=== PATIENT | female | born 1985 | race Caucasian/White ===

== ENCOUNTER 2016-09-01 21:41 | Emergency (ER) | payer OTHER ==
[~2016-09-01] VITALS: Ht 160 cm; Wt 70.0 kg
[~2016-09-01 21:41] MED LIST: ALBU17IN INH; IBUP80TA PO; MULTCAP PO; PERC5TAB6 PO; PROZ20CA11 PO; TRAM50TA2 PO; VARE1TA PO
[2016-09-01] MEDS ORDERED: MICR1TAB10 PO (21:53)
[2016-09-01] MEDS ORDERED: PERCOCET 5MG/325MG TAB PO ONE (22:45)
[2016-09-02] MEDS ORDERED: OXYCODONE/APAP 5MG/325MG(BULK FOR ED) 1 TABLET PO ONE
[2016-09-02 00:10] VITALS: BP 125/67
--- NOTE | 2016-09-02 00:42 | REP ---
Clinical: Trauma. Technique: AP, lateral, bilateral oblique views left wrist . Findings: The carpal bones, surrounding osseous structures, soft tissues, and joint spaces are normal. There is no evidence for acute fracture or dislocation. No subcutaneous emphysema or radiodense foreign body. Impression: Normal wrist series. No acute fracture or dislocation Signed by Zion Daly MD 09/02/2016 12:33 A
--- NOTE | 2016-09-02 01:11 | REP ---
Clinical: Trauma. Technique: AP, lateral, bilateral oblique views left hand . Findings: The osseous structures and joint spaces are intact and normal. There is no evidence for acute fracture or dislocation. Possible old injuries at the base of the third - fifth metacarpal bones. Surrounding soft tissues are unremarkable. No subcutaneous emphysema or radiodense foreign body. Impression: 1. No acute fracture or dislocation. 2. Subtle irregularity at the base of the third - fifth metacarpal bones may reflect old injuries and should be correlated clinically. Signed by Zion Daly MD 09/02/2016 01:03 A
== END 2016-09-02 00:12 | disposition home or self-care (01) ==
LOC: M ED 22:44
DX: S66.515A Strain of intrinsic muscle, fascia and tendon of left ring finger at wrist and hand level, initial encounter (principal); S66.517A Strain of intrinsic muscle, fascia and tendon of left little finger at wrist and hand level, initial encounter; X50.0XXA Overexertion from strenuous movement or load, initial encounter; Y92.099 Unspecified place in other non-institutional residence as the place of occurrence of the external cause; Y93.89 Activity, other specified; Y99.9 Unspecified external cause status; F41.9 Anxiety disorder, unspecified; J45.909 Unspecified asthma, uncomplicated; Z79.899 Other long term (current) drug therapy; Z88.8 Allergy status to other drugs, medicaments and biological substances; Z88.2 Allergy status to sulfonamides; Z91.013 Allergy to seafood

== ENCOUNTER 2016-12-29 01:27 | Observation (INO) | payer OTHER ==
[~2016-12-29] VITALS: Ht 160 cm; Wt 58.7 kg
[~2016-12-29 01:27] MED LIST changes: +MICR1TAB10 PO; +PERC5TAB12 PO; -PERC5TAB6 PO
[2016-12-29] MEDS ORDERED: NS 1,000 ML IV ONE ×2 (02:00→06:45)
[2016-12-29 02:08] LABS: BASO # 0.1 10^3/uL (0.0-0.2); BASO % 0.5 % (0.0-1.0); EOS # 0.4 10^3/uL (0.0-0.50); EOS % 3.8 % (0.0-3.0); IMMATURE GRANULOCYTE % 0.2 % (0-0); LYMPH # 3.4 10^3/uL (1.5-4.5); LYMPH % 33.3 % (24.0-44.0); MEAN CORPUSCULAR HEMOGLOBIN 31.2 pg (27.0-33.0); MEAN CORPUSCULAR HGB CONC 34.5 g/dl (32.0-36.5); MEAN CORPUSCULAR VOLUME 90.4 fl (80.0-96.0); MONO # 0.6 10^3/uL (0.0-0.8); MONO % 6.2 % (0.0-5.0); NEUTROPHILS # 5.7 10^3/uL (1.8-7.7); PLATELET COUNT, AUTOMATED 211 10^3/uL (150-450); RED CELL DISTRIBUTION WIDTH 12.5 % (11.5-14.5); WHITE BLOOD COUNT 10.2 10^3/uL (4.0-10.0)
[2016-12-29 02:30] LABS: ALBUMIN 3.2 GM/DL (3.2-5.2); ALBUMIN/GLOBULIN RATIO 1.28 (1.00-1.93); ALKALINE PHOSPHATASE 48 U/L (45-117); ALT/SGPT 14 U/L (12-78); ANION GAP 4 MEQ/L (8-16); AST/SGOT 9 U/L (15-37); BILIRUBIN,DIRECT < 0.1 MG/DL (0.0-0.2); BILIRUBIN,TOTAL 0.2 MG/DL (0.2-1.0); BLOOD UREA NITROGEN 15 MG/DL (7-18); CALCIUM LEVEL 7.6 MG/DL (8.5-10.1); CARBON DIOXIDE LEVEL 27 MEQ/L (21-32); CHLORIDE LEVEL 111 MEQ/L (98-107); GLOMERULAR FILTRATION RATE > 60.0 (>60); GLUCOSE, FASTING 62 MG/DL (70-105); POTASSIUM SERUM 3.2 MEQ/L (3.5-5.1); SODIUM LEVEL 142 MEQ/L (136-145); TOTAL PROTEIN 5.7 GM/DL (6.4-8.2)
[2016-12-29 03:59] LABS: METHADONE URINE NEGATIVE (NEGATIVE)
[2016-12-29] MEDS ORDERED: ACETAMINOPHEN TAB 650MG DOSE (2X325MG) PO PRN (08:30)
[2016-12-29] MEDS ORDERED: ONDANSETRON 4MG/2ML VIAL (J2405) IV PRN (08:30)
[2016-12-29] MEDS ORDERED: ONDANSETRON 4 MG TAB (S0181) PO PRN (08:30)
[2016-12-29] MEDS ORDERED: KCL 40MEQ in NS 1000ML 1,000 ML IV SCH (08:30)
--- NOTE | 2016-12-29 08:56 | ECGEPIP ---
Stationary ECG Study [facility] - ED Test Date: 2016-12-29 Pat Name: DARLENE FERNANDES Department: Room: - Gender: F Rn Hemo Dialysis: : 1985 Requested By: RENE Rodríguez Order Number: [id number] Reading MD: Meng Llanes Measurements Intervals [place] Rate: 63 P: 64 WI: 179 QRS: 77 QRSD: 93 T: 41 QT: 435 QTc: 446 Interpretive Statements SINUS RHYTHM POSSIBLE LEFT ATRIAL ENLARGEMENT INC. RBBB NO PRIORS Electronically Signed On 12-29-2016 8:56:06 EDT by Meng Llanes
[2016-12-29 11:05] VITALS: BP 108/66
--- NOTE | 2016-12-29 16:43 | DS.PDOC ---
Discharge Summary General Date of Admission Dec 29, 2016 at 08:29 Date of Discharge 12/29/2016 Discharge Summary HISTORY AND PHYSICAL/DISCHARGE SUMMARY Please note, the patient left AMA within several hours of her admit order being placed, and before her H&P could be dictated. This document will serve as both a history and physical, as well as the discharge summary. Date of admission: 12/29/2016 Date of discharge/left AMA: 12/29/2016 PCP: Cierra Gunn Chief complaint: Took medicine to try to go to sleep HPI: 31-year-old female with anxiety, depression, OCD, seasonal allergies, cervical cancer status post hysterectomy who presented to the emergency department after her 16-year-old son called the neighbor because he was concerned about her. The neighbor called an ambulance. Upon arrival to the ED, the patient was extremely somnolent, and even after 6 hours of observation, there was difficulty arousing her. She initially reported that she took 21 mg of Xanax in an effort to help her go to sleep, but when a tox screen came back negative, it was clarified and learned that she actually took 21 mg of Klonopin , not Xanax. She vehemently reports to me that she took these medications in an effort to fall sleep and not in an effort to harm herself. She states that things have been rough for her lately, as her house is being foreclosed upon, and she recently lost her job. She states she lost her job because she has an 11 -year-old son who is autistic, ADHD, ODD, and bipolar who is having difficulty in school and she had to take off so much work to take care of him that she lost her job. She denies any SI. When asked if she has ever done anything to harm herself before, she tells me, "not intentionally." When I ask her to elaborate on this, all she will say is that she is "clumsy." She denies any prior inpatient mental health admissions. She does report that there is a lot of depression in her family, and that her uncle killed himself. Her best friend was present at the bedside during our interview. Past medical history: anxiety, depression, OCD, seasonal allergies, cervical cancer status post hysterectomy Past surgical history: BTL, appendectomy, right nephrectomy, hysterectomy Family history: Depression, uncle who committed suicide Social history: Patient states that she recently lost her job. She smokes approximately 4 cigarettes daily and denies any drug or alcohol use. Allergies: Gabapentin, shrimp, sulfa Review of systems: General: Negative for fever and chills Eyes: Negative for vision changes and ocular discharge ENT: Negative for sore throat and nose bleed Cardiovascular: Negative for chest pain, positive for palpitations when chasing her pets Respiratory: Negative for cough and shortness of breath GI: Negative for nausea, vomiting, diarrhea, constipation Musculoskeletal: Negative for neck and back pain Skin: Negative for rash Neuro: Negative for headache, dizziness, numbness, tingling Psych: Positive for being overwhelmed with circumstances, but denies suicidal ideation Endocrine: Negative for polyuria : Negative for dysuria Heme: Negative for bleeding Home meds: See below Physical exam: Vital signs: Vital Sign - Last 24 Hours 12/29/16 12/29/16 12/29/16 12/29/16 01:42 01:52 01:57 02:00 Temp 98.0 Pulse 72 69 65 Resp 12 B/P (MAP) 95/44 (61) 106/60 (75) Pulse Ox 95 O2 Delivery Room Air 12/29/16 12/29/16 12/29/16 12/29/16 02:02 02:07 02:12 02:17 Pulse 63 69 67 68 Pulse Ox 95 95 95 96 12/29/16 12/29/16 12/29/16 12/29/16 02:22 02:27 02:32 02:35 Pulse 71 69 72 B/P (MAP) Pulse Ox 95 96 95 12/29/16 12/29/16 12/29/16 12/29/16 02:37 02:42 02:47 02:52 Pulse 74 74 72 71 Pulse Ox 95 95 96 96 12/29/16 12/29/16 12/29/16 12/29/16 02:57 03:02 03:07 03:12 Pulse 69 71 70 65 Pulse Ox 96 96 95 98 12/29/16 12/29/16 12/29/16 12/29/16 03:17 03:22 03:24 03:27 Pulse 62 61 61 B/P (MAP) 110/69 (83) Pulse Ox 100 99 12/29/16 12/29/16 12/29/16 12/29/16 03:32 03:37 03:42 03:47 Pulse 64 67 69 71 12/29/16 12/29/16 12/29/16 12/29/16 03:52 03:57 04:02 04:07 Pulse 72 71 72 71 12/29/16 12/29/16 12/29/16 12/29/16 04:12 04:17 04:22 04:27 Pulse 72 72 73 71 12/29/16 12/29/16 12/29/16 12/29/16 04:32 04:37 04:42 04:47 Pulse 71 70 72 72 12/29/16 12/29/16 12/29/16 12/29/16 04:52 04:57 05:02 05:07 Pulse 67 67 69 68 Pulse Ox 98 12/29/16 12/29/16 12/29/16 12/29/16 05:12 05:17 05:22 05:27 Pulse 66 67 67 67 Pulse Ox 97 97 97 97 12/29/16 12/29/16 12/29/16 12/29/16 05:32 05:37 05:42 05:45 Temp 97.3 Pulse 67 65 64 Resp 14 B/P (MAP) Pulse Ox 98 96 96 99 O2 Delivery Room Air 12/29/16 12/29/16 12/29/16 12/29/16 05:47 05:52 05:57 06:02 Pulse 66 66 64 69 Pulse Ox 96 96 96 96 12/29/16 12/29/16 12/29/16 12/29/16 06:07 06:12 06:17 06:21 Pulse 69 67 63 B/P (MAP) 90/51 (64) Pulse Ox 96 96 97 12/29/16 12/29/16 12/29/16 12/29/16 06:22 06:27 06:30 06:32 Pulse 57 61 65 B/P (MAP) 87/53 (64) Pulse Ox 97 98 97 12/29/16 12/29/16 12/29/16 12/29/16 06:47 06:55 07:02 07:10 Pulse 64 61 B/P (MAP) 92/50 (64) 85/51 (62) Pulse Ox 97 98 12/29/16 12/29/16 12/29/16 12/29/16 07:17 07:25 07:32 07:40 Pulse 63 65 B/P (MAP) 90/54 (66) 92/54 (67) Pulse Ox 97 96 12/29/16 12/29/16 12/29/16 12/29/16 07:47 07:55 08:02 08:15 Pulse 63 58 B/P (MAP) 90/54 (66) 94/62 (73) Pulse Ox 96 98 12/29/16 12/29/16 12/29/16 12/29/16 08:17 08:25 08:40 08:40 Pulse 64 64 64 B/P (MAP) 99/66 (77) 99/65 (76) 99/65 (76) Pulse Ox 96 97 97 12/29/16 12/29/16 12/29/16 12/29/16 08:55 08:55 09:10 09:10 Pulse 63 63 73 73 B/P (MAP) 88/47 (61) 88/47 (61) 114/58 (76) 114/58 (76) Pulse Ox 96 96 98 98 12/29/16 12/29/16 12/29/16 12/29/16 09:25 09:40 09:41 09:41 Pulse 75 68 68 B/P (MAP) 101/58 (72) 93/57 (69) Pulse Ox 99 99 99 12/29/16 12/29/16 12/29/16 12/29/16 09:56 10:11 10:25 10:26 Temp 97.4 Pulse 63 64 79 Resp 14 B/P (MAP) 96/69 (78) Pulse Ox 99 99 12/29/16 12/29/16 12/29/16 10:40 10:41 11:05 Temp 96.8 Pulse 61 66 Resp 16 B/P (MAP) 104/83 (90) 108/66 (80) Pulse Ox 98 O2 Delivery Room Air Gen.: easily arousable, no acute distress Eyes: Extraocular movements intact, normal sclera ENT: Moist mucous membranes Cardiovascular: RRR, no murmurs rubs or gallops Lungs: clear to auscultation bilaterally, no rales, rhonchi, or wheeze Abdomen: Soft, NT/ND, normal BS Musculoskeletal: normal range of motion Extremities: No peripheral edema Neuro: alert and oriented 3, normal speech, no focal deficits Psych: Denies SI, very frustrated with me that I will not let her leave Labs and radiology: See below Potassium 3.2, remainder of BMP is unremarkable CBC, hepatitis panel, TSH, aspirin level, Tylenol level, tox screen are all unremarkable Assessment and plan: 31-year-old female with anxiety, depression, OCD, seasonal allergies, cervical cancer status post hysterectomy who presented to the emergency department after taking 21 mg of Klonopin. She was initially admitted by myself to the ICU for cardiac monitoring, and was placed on suicide precautions with a psychiatric consult to Dr. Bennett. She was started on IV fluids with potassium to replace the potassium. Before she could receive a room upstairs, Dr. Mariela Flores evaluated her in the emergency department. He then called and spoke to me regarding the case. He told me that he felt she was not suicidal, and had cleared her from a psych standpoint. He told me that she did not need inpatient psych admission and he felt that she had the capacity to choose to leave AMA. At the time of my dictation, director security management of his note is still pending. Immediately after speaking to Dr. Colindres, the patient's nurse paged me , stating that the patient had ripped out her IV and still desired to leave AMA. Based upon my phone conversation with Dr. Bennett, I allowed her to sign out AMA, as she and I had already discussed my concerns that she would need to be monitored on a surveillance system monitor as we ensured that she became more alert. She was accompanied by her best friend. Vital Signs/I&Os Vital Signs Date Time Temp Pulse Resp B/P (MAP) Pulse Ox O2 Delivery O2 Flow Rate FiO2 12/29/16 11:05 96.8 66 16 108/66 (80) 98 Room Air I&O- Last 24 Hours up to 6 AM 12/30/16 06:00 Intake Total 1000 ml Balance 1000 ml Laboratory Data Labs 24H Laboratory Tests 2 12/29/16 01:47: Immature Granulocyte % (Auto) 0.2H, White Blood Count 10.2H, Red Blood Count 4.07, Hemoglobin 12.7, Hematocrit 36.8, Mean Corpuscular Volume 90.4, Mean Corpuscular Hemoglobin 31.2, Mean Corpuscular Hemoglobin Concent 34.5, Red Cell Distribution Width 12.5, Platelet Count 211, Neutrophils (%) (Auto) 56.0, Lymphocytes (%) (Auto) 33.3, Monocytes (%) (Auto) 6.2H, Eosinophils (%) (Auto) 3.8H, Basophils (%) (Auto) 0.5, Neutrophils # (Auto) 5.7, Lymphocytes # (Auto) 3.4, Monocytes # (Auto) 0.6, Eosinophils # (Auto) 0.4, Basophils # (Auto) 0.1, Immature Granulocyte # (Auto) 0.0, Nucleated Red Blood Cells % (auto) 0.0, Anion Gap 4L, Glomerular Filtration Rate > 60.0, Calcium Level 7.6L, Aspartate Amino Transf (AST/SGOT) 9L, Alanine Aminotransferase (ALT/SGPT) 14, Alkaline Phosphatase 48, Total Bilirubin 0.2, Direct Bilirubin < 0.1, Total Creatine Kinase 56, Total Protein 5.7L, Albumin 3.2, Albumin/Globulin Ratio 1.28, Thyroid Stimulating Hormone (TSH) 2.810, Salicylates Level 2.6L, Acetaminophen Level < 2.0L, Ethyl Alcohol Level 0.005 12/29/16 03:25: Urine Amphetamines Screen NEGATIVE, Urine Benzodiazepines Screen NEGATIVE, Urine Opiates Screen NEGATIVE, Urine Methadone Screen NEGATIVE, Urine Barbiturates Screen NEGATIVE, Urine Phencyclidine Screen NEGATIVE, Urine Cocaine Metabolite Screen NEGATIVE, Urine Cannabinoids Screen NEGATIVE 12/29/16 06:20: Bedside Glucose ([facility] [place] Panel) 91 CBC/BMP Laboratory Tests 12/29/16 01:47 Red Blood Count 4.07, Mean Corpuscular Volume 90.4, Mean Corpuscular Hemoglobin 31.2, Mean Corpuscular Hemoglobin Concent 34.5, Red Cell Distribution Width 12.5 , Neutrophils (%) (Auto) 56.0, Lymphocytes (%) (Auto) 33.3, Monocytes (%) (Auto ) 6.2 H, Eosinophils (%) (Auto) 3.8 H, Basophils (%) (Auto) 0.5, Neutrophils # ( Auto) 5.7, Lymphocytes # (Auto) 3.4, Monocytes # (Auto) 0.6, Eosinophils # (Auto ) 0.4, Basophils # (Auto) 0.1 FSBS Laboratory Tests Test 12/29/16 06:20 Range/Units Bedside Glucose (Misc Panel) 91 70-105 MG/DL Discharge Medications Unable to Obtain Active Prescriptions or Reported Meds Allergies Coded Allergies: Gabapentin (Verified Allergy, Severe, TONGUE AND THROAT SWELLING, 11/09/13) Shrimp (Verified Allergy, Severe, HIVES/SWELLING/THROAT SWELLS, 04/15/11) Sulfa Drugs (Verified Allergy, Intermediate, HIVES/SWELLING, 06/25/12) JANESSA STOUT Dec 29, 2016 16:43
== END 2016-12-29 11:17 | disposition left against medical advice (07) ==
LOC: M ED 01:27 → M ED INP 08:29
PROVIDERS: ADMIT Hospitalist; ATTEND Hospitalist
DX: T42.4X2A Poisoning by benzodiazepines, intentional self-harm, initial encounter (principal); Z53.21 Procedure and treatment not carried out due to patient leaving prior to being seen by health care provider; F42.9 Obsessive-compulsive disorder, unspecified; F32.9 Major depressive disorder, single episode, unspecified; F41.9 Anxiety disorder, unspecified; F17.210 Nicotine dependence, cigarettes, uncomplicated; Z88.2 Allergy status to sulfonamides; Z88.8 Allergy status to other drugs, medicaments and biological substances; Z91.013 Allergy to seafood; Z79.899 Other long term (current) drug therapy
CPT/HCPCS: 80048; 80076; 80307; 82550; 84443; 85025; 93005; 93041; 94760; 96360; 99285; G0480

== ENCOUNTER 2017-07-04 17:42 | Emergency (ER) | payer OTHER | END 2017-07-04 22:20 | disposition left against medical advice (07) | LOC: M ED 17:42 | DX: R09.89 Other specified symptoms and signs involving the circulatory and respiratory systems (principal); Z53.21 Procedure and treatment not carried out due to patient leaving prior to being seen by health care provider ==

== ENCOUNTER 2017-10-28 19:52 | Emergency (ER) | payer OTHER, MEDICAID ==
[2017-10-28 20:37] LABS: KETONE, URINE AUTO RFX NEGATIVE (NEGATIVE); LEUKOCYTE ESTERASE UR AUTO RFX NEGATIVE (NEGATIVE); NITRITE, URINE AUTO RFX NEGATIVE (NEGATIVE); RBC, URINE AUTO RFX 1 /HPF (0-3); SPECIFIC GRAVITY UR AUTO RFX 1.002 (1.002-1.035); SQUAM EPITHELIAL CELL UR AURFX 0 /HPF (0-6); WBC, URINE AUTO RFX 0 /HPF (0-3)
== END 2017-10-29 00:15 | disposition left against medical advice (07) ==
LOC: M ED 10-29 00:15
DX: R10.9 Unspecified abdominal pain (principal); Z53.21 Procedure and treatment not carried out due to patient leaving prior to being seen by health care provider
CPT/HCPCS: 81001

== ENCOUNTER 2019-02-12 20:31 | Emergency (ER) | payer OTHER, MEDICAID ==
[~2019-02-12] VITALS: Ht 160 cm; Wt 56.4 kg
[~2019-02-12 20:31] MED LIST changes: +CARA1TAB6 PO; +DICY20TA11; -MICR1TAB10 PO; +MICR1TAB18 PO; +OMEP40CA97 PO; +PRIL20TA2 PO
[2019-02-12] MEDS ORDERED: ZOFR4TAB16 PO (20:39)
[2019-02-12] MEDS ORDERED: KETOROLAC 30 MG/ML VIAL (J1885) IV ONE (22:30)
[2019-02-12] MEDS ORDERED: ONDANSETRON 4MG/2ML VIAL (J2405) IV ONE (22:30)
[2019-02-12] MEDS ORDERED: NS 1,000 ML IV ONE (22:30)
[2019-02-12] MEDS: GASTROGRAFIN SOLUTION 30ML PO SCH ×2 (23:23→23:44)
[2019-02-12 23:24] LABS: BASO # 0.1 10^3/uL (0.0-0.2); BASO % 0.5 % (0.0-1.0); EOS # 0.4 10^3/uL (0.0-0.5); EOS % 3.6 % (0.0-3.0); HEMATOCRIT 38.8 % (36.0-47.0); HEMOGLOBIN 13.5 g/dl (12.0-15.5); LYMPH # 4.4 10^3/uL (1.5-5.0); LYMPH % 39.5 % (24.0-44.0); MEAN CORPUSCULAR HEMOGLOBIN 31.3 pg (27.0-33.0); MEAN CORPUSCULAR HGB CONC 34.8 g/dl (32.0-36.5); MONO # 0.7 10^3/uL (0.0-0.8); MONO % 5.8 % (0.0-5.0); NEUTROPHILS # 5.6 10^3/uL (1.5-8.5); NEUTROPHILS % 50.3 % (36.0-66.0); PLATELET COUNT, AUTOMATED 293 10^3/uL (150-450); RED BLOOD COUNT 4.31 10^6/uL (4.00-5.40); WHITE BLOOD COUNT 11.2 10^3/uL (4.0-10.0)
[2019-02-12 23:53] LABS: AMPHETAMINES LEVEL URINE NEGATIVE (NEGATIVE); BARBITURATES URINE NEGATIVE (NEGATIVE); BENZODIAZEPINES URINE NEGATIVE (NEGATIVE); CANNABINOIDS URINE NEGATIVE (NEGATIVE); COCAINE METABOLITE URINE NEGATIVE (NEGATIVE); METHADONE URINE NEGATIVE (NEGATIVE); OPIATES URINE NEGATIVE (NEGATIVE); PHENCYCLIDINE URINE NEGATIVE (NEGATIVE)
[2019-02-12 23:54] LABS: ALBUMIN 3.8 GM/DL (3.2-5.2); BILIRUBIN,DIRECT 0.1 MG/DL (0.0-0.2); BILIRUBIN,TOTAL 0.4 MG/DL (0.2-1.0); TOTAL PROTEIN 6.9 GM/DL (6.4-8.2)
[2019-02-13] MEDS ORDERED: ISOVUE-370 76% 100ML VIAL (Q9967) As Ordered ONE (00:37)
--- NOTE | 2019-02-13 01:29 | REPVR ---
PROCEDURE INFORMATION: Exam: CT Abdomen And Pelvis With Contrast Exam date and time: 02/13/2019 12:47 AM Age: 33 years old Clinical history: Abdominal pain; Generalized; Additional info: Right sided abd pain for 7 days TECHNIQUE: Imaging protocol: Computed tomography of the abdomen and pelvis with intravenous contrast. Radiation optimization: All CT scans at this facility use at least one of these dose optimization techniques: automated exposure control; mA and/or kV adjustment per patient size (includes targeted exams where dose is matched to clinical indication); or iterative reconstruction. Contrast material: ISOVUE 370; Contrast volume: 100 ml; Contrast route: IV; COMPARISON: CT ABD/PEL W/IV CONTRAST ONLY 10/25/2017 8:02 PM FINDINGS: Liver: Normal. No mass. Gallbladder and bile ducts: The gallbladder is contracted with no stones. Pancreas: Normal. No ductal dilation. Spleen: Normal. No splenomegaly. Adrenals: Normal. No mass. Kidneys and ureters: Normal. No hydronephrosis. Stomach and bowel: Sutures at the cecal tip suggesting prior appendectomy. Question of slight pericolonic induration about the ascending colon with slight wall thickening. Appendix: No evidence of appendicitis. Intraperitoneal space: Unremarkable. No free air. No significant fluid collection. Vasculature: Unremarkable. No abdominal aortic aneurysm. Lymph nodes: Unremarkable. No enlarged lymph nodes. Bladder: Unremarkable as visualized. Reproductive: Status post hysterectomy. Bones/joints: Unremarkable. No acute fracture. Soft tissues: Unremarkable. IMPRESSION: 1. Resolution of free fluid in the pelvis since 10/25/2017. 2. Status post hysterectomy. 3. Question of minimal nonspecific segmental colitis of the ascending colon. 4. Otherwise negative CT abdomen/pelvis. Electronically signed by: Fabien Bone On 02/13/2019 01:28:15 AM
[2019-02-13] MEDS ORDERED: niCARdipine IV 40 MG in IV 1 EA IV SCH (02:45)
[2019-02-13 03:03] VITALS: BP 113/58
== END 2019-02-13 03:05 | disposition home or self-care (01) ==
LOC: M ED 20:31
DX: R10.9 Unspecified abdominal pain (principal); R11.0 Nausea; Z88.1 Allergy status to other antibiotic agents; Z88.2 Allergy status to sulfonamides; Z88.8 Allergy status to other drugs, medicaments and biological substances; Z91.018 Allergy to other foods; F17.210 Nicotine dependence, cigarettes, uncomplicated
CPT/HCPCS: 74177; 80047; 80076; 80307; 81001; 83690; 84702; 85025; 87040; 96374; 96375; 99284; J1885; J2405; Q9963; Q9967

== ENCOUNTER → 2019-04-20 | Outpatient (CLI) | payer OTHER, MEDICAID ==
[~2019-04-20] MED LIST changes: +ZOFR4TAB16 PO
--- NOTE | 2019-04-20 11:23 | REP ---
PELVIC ULTRASOUND: Real-time sonographic evaluation of the pelvis is performed utilizing transabdominal technique. Bladder measures 10.3 x 5.6 x 10.4 cm. Uterus has been surgically removed previously. Right ovary has also been surgically removed previously. The left ovary measures 4.4 x 2.5 x 2.1 cm. There is a complex cystic structure 2.6 x 2.3 x 2.3 cm in the left ovary. There is no left ovarian torsion, with blood flow seen in the left ovary with duplex Doppler evaluation. There is no other evidence of mass or free fluid. IMPRESSION: Small complex cystic structure left ovary maximum diameter 2.6 cm. No other evidence of mass or free fluid.
[2019-04-20 14:51] LABS: ESTRADIOL 76.4 PG/ML; FOLLICLE STIMULATING HORMONE 6.5 mIU/mL; LUTEINIZING HORMONE 5.6 mIU/mL
== END ==
LOC: M WHC 09:53
PROVIDERS: ATTEND Obstetrics & Gynecology
DX: N95.1 Menopausal and female climacteric states (principal)

== ENCOUNTER → 2019-07-12 | Outpatient (CLI) | payer OTHER, MEDICAID ==
--- NOTE | 2019-07-12 18:58 | REP ---
Clinical: Follow-up left ovarian cyst. Comparison: 04/20/2019. Technique: Transabdominal pelvic ultrasound for with color evaluation. Findings: The patient is noted to be status post hysterectomy and right oophorectomy with no pelvic fluid or mass identified. Left ovary measures 4.6 x 1.7 x 2.9 cm and demonstrates normal blood flow without torsion. A left ovarian cystic structure is again identified and measures 2.2 x 1.4 x 1.9 cm likely representing physiologic cyst / dominant follicle. Impression: 1. Status post hysterectomy and right oophorectomy. 2. Essentially normal left ovary including 2.2 cm cyst likely physiologic cyst / dominant follicle. Consider reevaluation in 4-6 weeks to evaluate for resolution.
== END ==
LOC: M WHC 09:53
PROVIDERS: ATTEND Obstetrics & Gynecology
DX: N83.202 Unspecified ovarian cyst, left side (principal); Z90.710 Acquired absence of both cervix and uterus; Z90.721 Acquired absence of ovaries, unilateral

== ENCOUNTER → 2020-08-25 | Outpatient (REF) | payer OTHER, MEDICAID ==
[~2020-08-25] MED LIST changes: +OMEP40CA4 PO; -OMEP40CA97 PO
== END ==
LOC: M SFHCWAGY 13:27
PROVIDERS: ATTEND Obstetrics & Gynecology
DX: Z12.72 Encounter for screening for malignant neoplasm of vagina (principal)
CPT/HCPCS: G0123; G0463

== ENCOUNTER → 2020-09-16 | Outpatient (CLI) | payer OTHER, MEDICAID ==
--- NOTE | 2020-09-16 15:39 | REP ---
INDICATION: N83.202 LEFT OVARIAN CYST COMPARISON: 07/12/2019 TECHNIQUE: Transabdominal pelvic ultrasound followed by transvaginal examination for better evaluation of the endometrium and adnexa with color Doppler evaluation of the ovaries. FINDINGS: Bladder is unremarkable and measures 9.1 x 7.2 x 3.7 cm. Patient is status post hysterectomy and right oophorectomy. Left ovary is normal in appearance and vascularity without torsion measuring 4.1 x 2.6 x 4.6 cm (RI 0.43). No pelvic fluid or adnexal mass lesion. IMPRESSION: Status post hysterectomy and right oophorectomy. Normal left ovary. <Electronically signed by Zion Daly > 09/16/20 [id number]
== END ==
LOC: M WHC 15:01
PROVIDERS: ATTEND Obstetrics & Gynecology
DX: Z90.710 Acquired absence of both cervix and uterus (principal); Z90.721 Acquired absence of ovaries, unilateral

== ENCOUNTER → 2020-10-15 | Outpatient (CLI) | payer OTHER, MEDICAID ==
--- NOTE | 2020-10-15 13:01 | REP ---
INDICATION: JOCELYNN DIAG MAMMO/JOCELYNN NIPPLE DISCHARGE. COMPARISON: None TECHNIQUE: Digital mammography was carried out bilaterally in the CC and MLO projections using both 2D and 3D modalities. There are no prior examinations for comparison. This is the patient's initial mammogram. FINDINGS: The breasts are symmetric in size and shape. Markedly dense heterogenous fibroglandular elements are seen bilaterally to such a degree that the sensitivity of the mammogram in detecting cancers decreased. There are no masses. There is no internal architectural distortion. There are no suspicious calcifications. There is no skin thickening or nipple retraction. The Volpara volumetric breast density pattern is D. IMPRESSION: BIRADS/ACR category 2 benign findings. A negative mammogram does not obviate further breast imaging in patient's that have nipple discharge. Bilateral ductography is recommended. Due to the patient's breast density score of D and complaints of nipple discharge bilateral breast MRI is recommended. This patient's Tyrer-Cuzi lifetime breast cancer risk assessment score is 9.2%. This mammogram was interpreted with the aid of an FDA-approved computer-aided detection system. The patient states she had a clinical breast exam in August 2020. The patient letter being requested is M0. RECOMMENDATION: Bilateral ductography. Bilateral breast MRI. <Electronically signed by Rodri Holloway > 10/15/20 [id number]
== END ==
LOC: M WHC 10:54
PROVIDERS: ATTEND Obstetrics & Gynecology
DX: N64.52 Nipple discharge (principal)
CPT/HCPCS: 77066; G0279

== ENCOUNTER → 2020-12-09 | Outpatient (CLI) | payer OTHER, MEDICAID ==
[~2020-12-09] MED LIST changes: +PROHANCE 279.3MG/ML 15ML VIAL As Ordered ONE
[2020-12-09 16:37] LABS: THYROID STIMULATING HORMONE 1.15 uIU/ML (0.358-3.740)
[2020-12-09 16:39] LABS: PROLACTIN 4.2 NG/ML
--- NOTE | 2020-12-10 08:27 | REP ---
INDICATION: JOCELYNN NIPPLE DISCHARGE/ LABS 1ST, MRI 2ND. COMPARISON: Comparison mammography lie 11/08/2019 TECHNIQUE: Three Leela MRI imaging was performed with a dedicated breast coil. Axial, coronal, and sagittal T1 and T2 weighted scans were obtained with and without fat saturation in the usual fashion. The study includes dynamically acquired post gadolinium-enhanced imaging with image subtraction. Maximum intensity projection and multi planar reformation imaging is included as well. This study is interpreted with the aid of [employer], an FDA approved computer aided detection (CAD) software program, on a dedicated breast MRI workstation. The gadolinium enhancement dose is 14 mL of intravenous ProHance. FINDINGS: There is a marked amount of fibroglandular tissue bilaterally corresponding with the mammographic pattern. There is a mild somewhat nodular pattern of background parenchymal enhancement. There is no evidence of axillary lymphadenopathy or significant breast cystic change. High-resolution pre and post-contrast T1 and T2 weighted scans show no suspicious morphologic abnormality in either breast. Dynamically acquired sequential postcontrast images show no suspicious area of enhancement and washout kinetics in either breast to suggest malignancy. Subtraction images show no additional abnormality. There are 2 or 3 mildly dilated retroareolar breast ducts bilaterally. IMPRESSION: BI-RADS category 2 benign bilateral breast MRI findings. <Electronically signed by Mitesh Chappell > 12/10/20 [id number]
== END ==
LOC: M RAD 14:59
PROVIDERS: ATTEND Obstetrics & Gynecology
DX: N64.52 Nipple discharge (principal)
CPT/HCPCS: 36415; 84146; 84443; A9576; C8908

== ENCOUNTER → 2022-06-18 | Outpatient (REF) | payer OTHER, MEDICAID ==
[~2022-06-18] MED LIST changes: -DICY20TA11; +DICY20TA20; -MICR1TAB18 PO; +NORE1TAB94 PO; -PROHANCE 279.3MG/ML 15ML VIAL As Ordered ONE
== END ==
LOC: M PLALAB 15:56
PROVIDERS: ATTEND Nurse Practitioner Family
DX: A59.9 Trichomoniasis, unspecified (principal)

== ENCOUNTER → 2022-06-18 | Outpatient (CLI) | payer OTHER ==
[2022-06-18 17:59] LABS: IRON (FE) 103 UG/DL (50-170); PERCENT SATURATION 36.4 % (13.2-45.0); TOTAL IRON BINDING CAPACITY 283 UG/DL (250-425)
[2022-06-18 18:02] LABS: ALKALINE PHOSPHATASE 99 U/L (46-116); ALT/SGPT 30 U/L (7.0-40); AST/SGOT 17 U/L (<34); BILIRUBIN,TOTAL 0.2 MG/DL (0.3-1.2); BLOOD UREA NITROGEN 9 MG/DL (9-23); CALCIUM LEVEL 9.5 MG/DL (8.5-10.1); CARBON DIOXIDE LEVEL 25 MMOL/L (20-31); CHLORIDE LEVEL 108 MMOL/L (98-107); CREATININE FOR GFR 0.74 MG/DL (0.55-1.30); FREE T4 1.08 NG/DL (0.89-1.76); GLOMERULAR FILTRATION RATE > 60.0 (>60); GLUCOSE, FASTING 120 MG/DL (60-100); POTASSIUM SERUM 4.3 MMOL/L (3.5-5.1); PROGESTERONE 0.28 NG/ML; PROLACTIN 3.37 NG/ML; SODIUM LEVEL 139 MMOL/L (136-145); TOTAL PROTEIN 6.6 G/DL (5.7-8.2)
[2022-06-18 18:10] LABS: HEMOGLOBIN A1c 5.4 % (4.0-6.0)
[2022-06-24 02:08] LABS: 17 HYDROXY PROGESTERONE 40 ng/dL (.); DEHYDROEPIANDROSTERONE SULFATE 65.9 ug/dL (57.3-279.2); ESTROGENS TOTAL 195 pg/mL (.); TESTOSTERONE FREE (DIRECT) < 0.2 pg/mL (0.0-4.2); TESTOSTERONE TOTAL FOR T&D < 3.0 ng/dL (8-60)
== END ==
LOC: M PLALAB 15:03
PROVIDERS: ATTEND Nurse Practitioner Family
DX: N92.6 Irregular menstruation, unspecified (principal)

== ENCOUNTER → 2022-09-27 | Outpatient (REF) | payer OTHER, MEDICAID | LOC: M SFHCWAGY 16:56 | PROVIDERS: ATTEND Nurse Practitioner Family | DX: N89.8 Other specified noninflammatory disorders of vagina (principal) ==